=== PATIENT | female | born 1950 | race Caucasian/White ===

== ENCOUNTER 2022-10-12 06:56 | Day surgery (SDC) | payer MEDICARE, OTHER ==
[~2022-10-12] VITALS: Ht 160 cm; Wt 63.6 kg
[2022-10-12] MEDS ORDERED: DOCU100C40 PO (07:40)
[2022-10-12] MEDS ORDERED: CALC0.2511 PO (07:40)
[2022-10-12] MEDS ORDERED: MELA10TA2 PO (07:40)
[2022-10-12] MEDS ORDERED: PANT40TA54 PO (07:40)
[2022-10-12] MEDS ORDERED: ATEN-27 PO (07:40)
[2022-10-12] MEDS ORDERED: ESCI-8 PO (07:40)
[2022-10-12] MEDS ORDERED: CINA30TA2 PO (07:40)
[2022-10-12] MEDS ORDERED: ATOR40TA71 PO (07:40)
[2022-10-12] MEDS ORDERED: SEVE800T8 PO (07:40)
[2022-10-12] MEDS ORDERED: METAMUCIL GUMMIES PO (07:40)
[2022-10-12] MEDS ORDERED: DENO60DI SUBCUT (07:40)
[2022-10-12] MEDS ORDERED: VIBE75TA PO (07:40)
[2022-10-12] MEDS ORDERED: FURO-149 PO (07:40)
[2022-10-12] MEDS ORDERED: FOLI0.8T22 PO (07:40)
[2022-10-12 07:50] VITALS: BP 122/79
[2022-10-12] MEDS ORDERED: LIDOcaine 1%/PF 5ML 10 MG/ML VIAL SQ ONE (07:55)
[2022-10-12 08:36] VITALS: BP 137/71
[2022-10-12 08:51] VITALS: BP 132/83
[2022-10-12 09:00] VITALS: BP 103/82
[2022-10-12 09:15] VITALS: BP 128/83
[2022-10-12 09:30] VITALS: BP 132/78
== END 2022-10-12 09:55 | disposition home or self-care (01) ==
LOC: SSTAY O 06:56
PROVIDERS: ATTEND Radiology Diagnostic Radiology
DX: J90 Pleural effusion, not elsewhere classified (principal); E78.5 Hyperlipidemia, unspecified; F32.A Depression, unspecified; I12.0 Hypertensive chronic kidney disease with stage 5 chronic kidney disease or end stage renal disease; N18.6 End stage renal disease; Z99.2 Dependence on renal dialysis; Z86.73 Personal history of transient ischemic attack (TIA), and cerebral infarction without residual deficits; Z85.6 Personal history of leukemia; Z90.49 Acquired absence of other specified parts of digestive tract; Z98.890 Other specified postprocedural states; Z90.721 Acquired absence of ovaries, unilateral; Z88.8 Allergy status to other drugs, medicaments and biological substances; Z79.899 Other long term (current) drug therapy
CPT/HCPCS: 32555; J3490

== ENCOUNTER 2023-01-27 08:16 | Day surgery (SDC) | payer MEDICARE, OTHER ==
[~2023-01-27] VITALS: Ht 160 cm; Wt 62.8 kg
[2023-01-27] VITALS (9 sets, daily range): BP systolic 105–126; BP diastolic 64–78; PULSE 64–78; RESP 15–17; TEMP 98; O2SAT 94–98
[~2023-01-27 08:16] MED LIST: ATEN-27 PO; ATOR40TA71 PO; CALC0.2511 PO; CINA30TA2 PO; DENO60DI SUBCUT; DOCU100C40 PO; ESCI-8 PO; FOLI0.8T22 PO; FURO-149 PO; MELA10TA2 PO; METAMUCIL GUMMIES PO; PANT40TA54 PO; SEVE800T8 PO; VIBE75TA PO
[2023-01-27] MEDS ORDERED: fentaNYL/PF 50MCG/1 ML 2ML syringe ONE (09:11)
[2023-01-27] MEDS ORDERED: midazolam 1 mg/ML 2ml injection ONE (09:11)
[2023-01-27] MEDS ORDERED: heparin 1,000unit/ml 10ml vial 10 ML ONE (10:14)
[2023-01-27 10:44] LABS: BASOPHILS # (AUTO) 0.1 X10'3 (0-0.2); BASOPHILS % (AUTO) 1.1 % (0-1); EOSINOPHILS # (AUTO) 0.2 X10'3 (0-0.9); EOSINOPHILS % (AUTO) 2.3 % (0-6); HEMATOCRIT 29.4 % (35.0-45.0); HEMOGLOBIN 9.7 g/dl (12.0-16.0); LYMPHOCYTES # (AUTO) 1.4 X10'3 (1.1-4.8); LYMPHOCYTES % (AUTO) 18.1 % (21-51); MEAN CORPUSCULAR HEMOGLOBIN 34.2 PG (27.0-31.0); MEAN CORPUSCULAR HGB CONC 33.1 g/dL (33.0-36.5); MEAN CORPUSCULAR VOLUME 103.2 FL (78-98); MEAN PLATELET VOLUME 9.2 FL (7.4-10.4); MONOCYTES # (AUTO) 0.8 X10'3 (0-0.9); MONOCYTES % (AUTO) 10.4 % (2-12); NEUTROPHILS # (AUTO) 5.3 X10'3 (1.8-7.7); NEUTROPHILS % (AUTO) 68.1 % (42-75); PLATELET COUNT 198 X10'3 (140-440); RED BLOOD COUNT 2.85 X10'6 (4.20-5.60); RED CELL DISTRIBUTION WIDTH 14.6 % (11.5-14.5); WHITE BLOOD COUNT 7.8 X10'3 (4.5-11.0)
[2023-01-27 10:48] LABS: ALBUMIN 3.1 G/DL (3.4-5.0); ANION GAP 6 (8-16); BLOOD UREA NITROGEN 55 MG/DL (7-18); BUN/CREATININE RATIO 8.9 (10.0-20.0); CALCIUM 10.1 MG/DL (8.5-10.1); CHLORIDE 105 MMOL/L (99-107); CREATININE 6.16 MG/DL (0.40-0.90); GLUCOSE 88 MG/DL (70-104); POTASSIUM 4.4 MMOL/L (3.5-5.1); SODIUM 140 MMOL/L (135-145); eCRCL 7 ML/MIN; eGFR 7 ML/MIN
[2023-01-27 10:50] LABS: PROTHROMBIN TIME 9.9 SECONDS (9.0-12.0)
[2023-01-27 10:53] LABS: INR 0.9 INR
== END 2023-01-27 12:35 | disposition home or self-care (01) ==
LOC: SSTAY O 08:16
PROVIDERS: ATTEND Radiology Diagnostic Radiology
DX: T82.858A Stenosis of other vascular prosthetic devices, implants and grafts, initial encounter (principal); I12.0 Hypertensive chronic kidney disease with stage 5 chronic kidney disease or end stage renal disease; N18.6 End stage renal disease; E78.5 Hyperlipidemia, unspecified; F32.A Depression, unspecified; Z86.73 Personal history of transient ischemic attack (TIA), and cerebral infarction without residual deficits; Z90.710 Acquired absence of both cervix and uterus; Z98.890 Other specified postprocedural states; Z90.49 Acquired absence of other specified parts of digestive tract; Z90.721 Acquired absence of ovaries, unilateral; Z85.6 Personal history of leukemia; Z88.8 Allergy status to other drugs, medicaments and biological substances; Z79.899 Other long term (current) drug therapy; Y83.2 Surgical operation with anastomosis, bypass or graft as the cause of abnormal reaction of the patient, or of later complication, without mention of misadventure at the time of the procedure; Y92.89 Other specified places as the place of occurrence of the external cause
CPT/HCPCS: 36415; 36902; 80048; 85025; 85610; 99152; 99153; C1769; J1644; J2250; J3010; J7030; A6213; A6258; A6402; C1726; C1894; C2623

== ENCOUNTER 2023-04-29 09:11 | Day surgery (SDC) | payer MEDICARE, OTHER ==
[~2023-04-29] VITALS: Ht 160 cm; Wt 61.9 kg
[~2023-04-29 09:11] MED LIST changes: -DENO60DI SUBCUT
[2023-04-29 09:30] VITALS: BP 108/72; PULSE 103; RESP 16; TEMP 98.3; O2SAT 100
[2023-04-29] MEDS ORDERED: VITA1CAP PO (09:30)
[2023-04-29 11:00] VITALS: BP 111/72; PULSE 86; RESP 16; O2SAT 99
[2023-04-29 11:02] VITALS: BP 113/81; PULSE 64; RESP 15; O2SAT 99
[2023-04-29 11:17] VITALS: BP 112/71; PULSE 74; RESP 16; O2SAT 99
[2023-04-29 11:32] VITALS: BP 113/71; PULSE 77; RESP 16; O2SAT 99
== END 2023-04-29 11:35 | disposition home or self-care (01) ==
LOC: SSTAY O 09:11
PROVIDERS: ATTEND Radiology Vascular & Interventional Radiology
DX: J90 Pleural effusion, not elsewhere classified (principal); Z85.6 Personal history of leukemia; I12.0 Hypertensive chronic kidney disease with stage 5 chronic kidney disease or end stage renal disease; N18.6 End stage renal disease; E78.5 Hyperlipidemia, unspecified; F32.A Depression, unspecified; Z99.2 Dependence on renal dialysis; Z86.73 Personal history of transient ischemic attack (TIA), and cerebral infarction without residual deficits; Z90.710 Acquired absence of both cervix and uterus; Z90.49 Acquired absence of other specified parts of digestive tract; Z98.890 Other specified postprocedural states; Z90.721 Acquired absence of ovaries, unilateral; Z92.21 Personal history of antineoplastic chemotherapy; Z88.8 Allergy status to other drugs, medicaments and biological substances; Z79.899 Other long term (current) drug therapy
CPT/HCPCS: 32555; C1729